=== PATIENT | male | born 1960 | race Caucasian/White ===

== ENCOUNTER 2019-01-13 18:07 | Emergency (ER) | payer SELFPAY ==
[~2019-01-13] VITALS: Wt 77.4 kg
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
[2019-01-13] MEDS ORDERED: CEPH-443 PO (20:39)
[2019-01-13] MEDS ORDERED: SULF1TAB31 PO (20:39)
[2019-01-13] MEDS ORDERED: IBUP800T48 PO (20:40)
[2019-01-13] MEDS ORDERED: TRAM50TA2 PO (20:41)
[2019-01-13] MEDS ORDERED: DIPHTH/TET/ACEL PERTUSS (ADULT) 0.5 ML VIAL IM* ONE (21:00)
[2019-01-13] MEDS ORDERED: HYDROCODONE/APAP (10/325) TAB PO ONE (21:00)
[2019-01-13] MEDS ORDERED: SILVER SULFADIAZINE 1% 25 GM CR TOP ONE (21:00)
== END 2019-01-13 21:05 | disposition home or self-care (01) ==
LOC: FTE 18:07
DX: T23.222A Burn of second degree of single left finger (nail) except thumb, initial encounter (principal); X19.XXXA Contact with other heat and hot substances, initial encounter; Y92.9 Unspecified place or not applicable; Z23 Encounter for immunization
CPT/HCPCS: 90471; 90715

== ENCOUNTER 2019-05-17 03:38 | Emergency (ER) | payer OTHER ==
[~2019-05-17] VITALS: Ht 172.7 cm; Wt 79.2 kg
[~2019-05-17 03:38] MED LIST: CEPH-443 PO; IBUP800T48 PO; SULF1TAB31 PO; TRAM50TA2 PO
[2019-05-17 03:51] VITALS: BP 121/78; PULSE 88; RESP 22; Ht 172.7 cm; Wt 79.2 kg
[2019-05-17] MEDS ORDERED: AMOX1TAB10 PO (03:57)
== END 2019-05-17 04:30 | disposition left against medical advice (07) ==
LOC: E/R 03:38
DX: Z76.0 Encounter for issue of repeat prescription (principal)
CPT/HCPCS: 99283

== ENCOUNTER 2019-07-27 19:06 | Emergency (ER) | payer OTHER ==
[~2019-07-27] VITALS: Ht 172.7 cm; Wt 68.0 kg
[~2019-07-27 19:06] MED LIST changes: +AMOX1TAB10 PO
[2019-07-27 19:11] VITALS: Ht 172.7 cm; Wt 68.0 kg
[2019-07-27] MEDS ORDERED: SOD CHLORIDE 0.9% 1,000 ML IV STA (19:24)
[2019-07-27] MEDS ORDERED: OLANZAPINE 10 MG VIAL IM ONE (19:30)
[2019-07-27] MEDS ORDERED: LORAZEPAM 2 MG INJ IV STA (20:07)
[2019-07-27] MEDS ORDERED: DIPHENHYDRAMINE 50 MG INJ IM ONE (20:30)
[2019-07-28 07:33] VITALS: BP 113/65; PULSE 78; RESP 20
== END 2019-07-28 14:30 ==
LOC: E/R 19:06
DX: R45.1 Restlessness and agitation (principal); T44.905A Adverse effect of unspecified drugs primarily affecting the autonomic nervous system, initial encounter
CPT/HCPCS: 36415; 80053; 80307; 85025; 96372; 96374; J1200; J2060; J7030; Z7502; Z7610

== ENCOUNTER 2019-08-16 16:06 | Emergency (ER) | payer OTHER ==
[~2019-08-16] VITALS: Ht 157.5 cm; Wt 78.0 kg
[~2019-08-16 16:06] MED LIST changes: -IBUP800T48 PO; -SULF1TAB31 PO; -TRAM50TA2 PO
[2019-08-16 16:12] VITALS: Ht 157.5 cm; Wt 78.0 kg
[2019-08-16] MEDS ORDERED: CEFTRIAXONE 1 GM INJ IM ONE ×2 (17:57→18:00)
[2019-08-16] MEDS ORDERED: LIDOCAINE 1% (MPF) 5 ML VIAL INFIL ONE (18:00)
[2019-08-16] MEDS ORDERED: HYDROCODONE/APAP (5/325) TAB PO ONE (18:00)
[2019-08-16 18:13] VITALS: BP 124/70; PULSE 74; RESP 18
== END 2019-08-16 18:16 | disposition home or self-care (01) ==
LOC: FTE 16:06
DX: L60.9 Nail disorder, unspecified (principal); R49.0 Dysphonia; F17.210 Nicotine dependence, cigarettes, uncomplicated
CPT/HCPCS: 96372; J0696; Z7502; Z7610

== ENCOUNTER 2019-08-22 10:29 | Emergency (ER) | payer SELFPAY | END 2019-08-22 11:05 | disposition left against medical advice (07) | LOC: E/R 10:29 | DX: Z53.21 Procedure and treatment not carried out due to patient leaving prior to being seen by health care provider (principal) ==